=== PATIENT | male | born 1955 | race Caucasian/White ===

== ENCOUNTER 2017-04-02 16:25 | Inpatient (IN) | payer MEDICARE, BC ==
[2017-04-02] MEDS ORDERED: DILTIAZEM HCL 5 MG/ML VIAL IV ONE ×3 (16:33→16:35)
[2017-04-02 16:51] LABS: Hematocrit 42.3 % (42.0-52.0); Hemoglobin 14.7 gm/dL (13.5-18.0); Mean Cell Volume 83.4 fl (78-100); Mean Corpuscular Hgb Conc 34.8 g/dl (32-36); Mean Platelet Volume 10.5 fl (6.0-9.5); Neutrophil # 7.1 K/mm3 (1.3-6.0); Neutrophil % 67.2 % (42-75.0); Platelet Count 245 K/mm3 (150-450); Red Blood Count 5.07 M/mm3 (4.7-6.0); Red Cell Distribution Width 13.3 % (11.5-14.0); White Blood Count 10.6 K/mm3 (4.0-10.5)
[2017-04-02] MEDS: DILTIAZEM HCL 125 MG in DEXTROSE 5 % IN WATER 100 ML IV PRN ×4 (17:01→17:28)
[2017-04-02 17:02] LABS: Prothrombin Time (Patient) 9.9 Seconds (9.0-11.0)
[2017-04-02 17:08] LABS: INR 0.99 INR (0.90-1.10)
[2017-04-02 17:13] LABS: ALT 33 U/L (19-67); AST 21 U/L (0-48); Alkaline Phosphatase * 59 U/L (50-170); Anion Gap 18.3 mmol/L (6.8-13.8); BUN/Creatinine Ratio 19.1 (9.0-21.6); Bilirubin, Total 0.4 mg/dL (0.0-1.1); Blood Urea Nitrogen 25 mg/dL (6-23); Calcium * 9.3 mg/dL (7.9-10.9); Chloride 95 mmol/L (97-106); Glucose * 239 mg/dL (70-110); Potassium 3.3 mmol/L (3.4-4.6); Sodium 137 mmol/L (132-142); Total Protein 8.3 gm/dL (6.2-8.2); Troponin I Less than 0.017 ng/ml (0.00-0.10)
[2017-04-02] MEDS ORDERED: HEPARIN SODIUM,PORCINE/D5W 25,000 UNITS/500 ML BAG IV PRN (17:26)
[2017-04-02] MEDS ORDERED: HEPARIN SODIUM,PORCINE/D5W 25,000 UNITS/500 ML BAG IV ONE (17:56)
--- NOTE | 2017-04-02 18:36 | ERNOTE ---
Chest Pain/Cardiac HPI Date of Service: 04/02/17 Chief Complaint: Palpitations Time Seen by Provider: 04/02/17 16:31 Source: patient Exam Limitations: no limitations Immunizations: IMMUNIZATION HX Immunizations Up to Date Yes History of Influenza Vaccine No Hx Pneumococcal Vaccination No Allergies/Adverse Reactions: Allergies metaxalone [From Skelaxin] Allergy (Severe, Verified 04/02/17 16:36) Other violently sick rosiglitazone maleate [From Avandia] Allergy (Severe, Verified 04/02/17 16:36) Other tachy rosuvastatin calcium [From Crestor] Allergy (Severe, Verified 04/02/17 16:36) Muscle Pain clarithromycin [From Biaxin] Allergy (Intermediate, Verified 04/02/17 16:36) Nausea duloxetine HCl [From Cymbalta] Allergy (Intermediate, Verified 04/02/17 16:36) Other sweats and feel funny pregabalin [From Lyrica] Allergy (Intermediate, Verified 04/02/17 16:36) Other dizzy Home Medications: HOME MEDICATIONS Amlodipine Besylate [Norvasc] 2.5 mg PO DAILY 10/19/14 [Last Taken Unknown] Furosemide [Lasix] 20 mg PO DAILY 10/19/14 [Last Taken Unknown] Isosorbide Mononitrate [Imdur] 60 mg PO DAILY 10/19/14 [Last Taken Unknown] Losartan/Hydrochlorothiazide [Hyzaar 100-25 Tablet] 1 each PO DAILY 10/19/14 [ Last Taken Unknown] Metoprolol Succinate [Toprol Xl] 200 mg PO DAILY 10/19/14 [Last Taken Unknown] Omeprazole [Prilosec] 20 mg PO DAILY 10/19/14 [Last Taken Unknown] Simvastatin [Zocor] 60 mg PO HS 10/19/14 [Last Taken Unknown] metFORMIN HCL [Glucophage] 1,000 mg PO BID 10/19/14 [Last Taken Unknown] traMADol HCL [Ultram] 100 mg PO BID 10/19/14 [Last Taken Unknown] Acetaminophen [Tylenol] 650 mg PO QID PRN #1 tab 10/20/14 [Last Taken Unknown] Insulin Detemir [Levemir] 80 units SC BID 10/20/14 [Last Taken 10/20/14 01:00] Nitroglycerin [Nitrostat] 0.4 mg SL Q5MIN PRN #1 btl 10/20/14 [Last Taken Unknown] Pioglitazone HCl [Actos] 45 mg PO DAILY 04/10/16 [Last Taken Unknown] Aspirin [Aspirin Chewable] 81 mg PO WE 04/02/17 [Last Taken Unknown] Cyclobenzaprine HCl [Flexeril] 10 mg PO QID PRN 04/02/17 [Last Taken Unknown] Potassium Chloride [Klor-Con M20] 20 meq PO DAILY 04/02/17 [Last Taken Unknown] Potassium Chloride [Klor-Con M20] 40 meq PO HS 04/02/17 [Last Taken Unknown] glipiZIDE [Glipizide] 10 mg PO BID 04/02/17 [Last Taken Unknown] oxyCODONE HCL/ACETAMINOPHEN [Endocet 10-325 mg Tablet] 1 each PO PRN PRN [Last Taken Unknown] Narrative: Patient presents to the ED for heart racing. He has been having heart racing for the last day. He can feel the palpitations, no CP or SOB. He has recently returned from [place] but no new calf pain or leg swelling and no pleuritic pain or SOB. He states his heart has raced before but he cannot recall ever being diagnosed with a fib. He is not on blood thinners. He has not seen anyone else for this. He reltes a long Hx of back spasms but these are no different from normal for him. Nothing seems to make this better or worse. Timing: constant Severity/Quality: other - denies pain Chest Pain Radiation: no radiation Activities at Onset: none Modifying Factors - Improves: Present: nothing Modifying Factors - Worsens: Present: nothing Associated Symptoms: Present: palpitations. Absent: dizziness, syncope, cough, shortness of breath, fever/chills, abdominal pain Prior Treatment: Denies: recently seen Review of Systems - Review of Systems Constitutional: Absent: fever Respiratory: Absent: shortness of breath Cardiology: Absent: chest pain Gastrointestinal/Abdominal: Absent: abdominal pain Neurological: Absent: weakness All Other Systems: All systems neg except as marked - Patient's Past Medical History Patient History - Medical: Diabetes Type 2 Insulin Dependent, GERD, Osteoarthritis Patient History - Cardiac/Respiratory: Hypertension, Hyperlipidemia, Myocardial Infarction Patient History - Cancer: No Hx of Cancer Patient History - Surgical Procedures: Coronary Bypass Surgery, Other Patient History - Other: None - Family History Mother Family History - Medical: Arthritis, Other Family History - Cardiac/Respiratory: Hypertension, Hyperlipidemia Father Family History - Medical: Arthritis, Diabetes Type 2, Other Family History - Cardiac/Respiratory: Hypertension, Hyperlipidemia, Myocardial Infarction Grandfather-Paternal Family History - Medical: Arthritis Family History - Cardiac/Respiratory: No pertinent hx Grandmother-Maternal Family History - Medical: Arthritis Grandmother-Paternal Family History - Medical: Arthritis Sister Family History - Cardiac/Respiratory: Hypertension - Social History Living Situations: home Abuse History: No History of abuse Psych History: No pertinent hx Alcohol Use: none Drug Use: none - Immunizations Immunizations Up to Date: Yes Hx Pneumococcal Vaccination: No History of Influenza Vaccine: No Physical Exam - Physical Exam General Appearance: Present: alert, no apparent distress Head Exam: Present: normal inspection, no evidence of injury Eye Exam: Normal inspection: bilateral, PERRL: bilateral Ears, Nose, Throat: Present: normal ENT inspection Neck: Present: normal inspection, nontender Respiratory: Present: no respiratory distress, normal breath sounds, no accessory muscle use, lungs clear Cardiovascular/Chest: Present: normal peripheral pulses, tachycardia Gastrointestinal/Abdominal: Present: normal bowel sounds, nontender, soft Back Exam: Absent: CVA tenderness (R), CVA tenderness (L) Extremity Exam: Present: other - no calf tenderness or DVT findings Neurological Exam: Present: alert, normal mood/affect, no motor/sensory deficits Skin Exam: Present: normal color, warm/dry ED Progress - Results and Orders Patient's Lab Results:: I have reviewed the patient's lab results. - Vital Signs Vital Signs: Vital Signs 04/02/17 04/02/17 04/02/17 16:31 16:38 16:49 Temperature 36.0 C L Pulse Rate 150 H 150 H 132 H Respiratory 24 H 19 Rate Blood Pressure 158/86 158/86 148/69 O2 Sat by Pulse 98 95 Oximetry 04/02/17 04/02/17 04/02/17 17:01 17:03 17:26 Temperature Pulse Rate 129 H 129 H 127 H Respiratory 20 14 Rate Blood Pressure 133/73 133/73 120/65 O2 Sat by Pulse 96 95 Oximetry - EKG EKG read: Interp. by id EKG Comments: A fib pattern with RVR. Non-specific ST/T wave changes, no clear evidence of STEMI. - X-Ray X-Ray #1 X-Ray: chest Interpretation: Interp. by me X-ray Comments: I reviewed official radiology report - Progress/Reassessment Chief Complaint: Palpitations Progress Note-Subjective: 04/02/17 18:35 IV cassia brought the patient from the 150s to the 130s. Cassia parr brought him to the 120's. D/W Dr Christopher who was content strategy lead, she recommends Heparin and the patient will be admitted. Patient agreeable. Departure Clinical Impression: Palpitations, Atrial fibrillation with RVR - Departure Disposition: [facility] Condition: Stable
[2017-04-02] MEDS ORDERED: POTASSIUM CHLORIDE 20 MEQ TABLET.SA PO ONE (21:39)
[2017-04-02] MEDS ORDERED: ACETAMINOPHEN 325 MG TABLET PO PRN (21:47)
--- NOTE | 2017-04-02 21:55 | HP ---
Chief Complaint - Chief Complaint Date of Service: 04/02/17 Time of Service: 21:25 Chief Complaint: Palpitation, chest pain History of Present Illness: 62 years old WM adm to the unit with reports of chest pain and palpitation. PMH significant for hypertension, hyperlipidemia, ME, CABG and diabetes. Pt stated he was at home and having chest discomfort that felt like back spasm. He denies shortness of breath,nausea, vomiting, headache and report lightheadedness and a cough x 6months that began while in [place]. He usually have the back discomfort and with increased heart rate that dissipated, however today his HR continue to increased despite he was resting. He was concerned because his Dad had ME and ,he had taken vitals at home BP 130/72 and HR 135. He called a friend who took him to the ER. In ER EKG showed Afib with RVR cardizem 20mg x1 and continue with drip,He was placed on heparin drip. Bun/ cre 25/1.31, BG 239, trop 0.017. Plan of care discussed with pt he verbalized understanding and agrees. - Patient's Past Medical History Patient History - Medical: Diabetes Type 2 Insulin Dependent, GERD, Osteoarthritis Patient History - Cardiac/Respiratory: Hypertension, Hyperlipidemia, Myocardial Infarction Patient History - Cancer: No Hx of Cancer Patient History - Surgical Procedures: Coronary Bypass Surgery, Other - elbow fragment removed Patient History - Other: None - Family History Mother Family History - Medical: Arthritis, Other - pacemaker Family History - Cardiac/Respiratory: Atrial Fibrillation, Hypertension, Hyperlipidemia Family History - Cancer: No pertinent family hx, Breast Father Family History - Medical: Arthritis, Diabetes Type 2, Other Family History - Cardiac/Respiratory: Hypertension, Hyperlipidemia, Myocardial Infarction Family History - Cancer: No pertinent family hx Grandfather-Paternal Family History - Medical: , Arthritis Family History - Cardiac/Respiratory: No pertinent hx Family History - Cancer: No pertinent family hx Grandmother-Maternal Family History - Medical: , Arthritis Family History - Cardiac/Respiratory: No pertinent hx Family History - Cancer: No pertinent family hx Grandmother-Paternal Family History - Medical: , Arthritis Family History - Cardiac/Respiratory: No pertinent hx Family History - Cancer: No pertinent family hx Sister Family History - Medical: No pertinent hx Family History - Cardiac/Respiratory: Hypertension Family History - Cancer: No pertinent family hx - Social History Living Situations: alone Abuse History: No History of abuse Psych History: No pertinent hx Smoking Status: Former smoker Have you smoked in the past 12 months: No Do you dip or chew tobacco: No Patient requests Smoking Cessation Consult: No Initiate information on Smoking Cessation: No Alcohol Use: none Drug Use: none - Immunizations Immunizations Up to Date: Yes Hx Pneumococcal Vaccination: No History of Influenza Vaccine: No Review Of Systems (GEN) - Review of Systems Generalized/Overall Review: Present: No Symptoms Reported EENTM: Present: No Symptoms Reported Respiratory: Present: Cough - x 6 months was livng in [facility] with alot of dust, nasal drainage due to sinusitis Cardiac: Present: Palpitations Abdominal: Present: No Symptoms Reported Genitourinary: Present: No Symptoms Reported Musculoskeletal: Present: Back Pain Neurological: Present: Parasthesia Skin: Present: No Symptoms Reported Endocrine: Present: No Symptoms Reported Immunizations: IMMUNIZATION HX Immunizations Up to Date Yes History of Influenza Vaccine No Hx Pneumococcal Vaccination No Allergies/Adverse Reactions: Allergies Allergy/AdvReac Type Severity Reaction Status Date / Time metaxalone [From Skelaxin] Allergy Severe Other Verified 04/02/17 20:05 rosiglitazone maleate Allergy Severe Other Verified 04/02/17 20:05 [From Avandia] rosuvastatin calcium Allergy Severe Muscle Pain Verified 04/02/17 20:05 [From Crestor] clarithromycin [From Biaxin] Allergy Intermediate Nausea Verified 04/02/17 20:05 duloxetine HCl Allergy Intermediate Other Verified 04/02/17 20:05 [From Cymbalta] pregabalin [From Lyrica] Allergy Intermediate Other Verified 04/02/17 20:05 Home Medications: HOME MEDICATIONS Amlodipine Besylate [Norvasc] 2.5 mg PO DAILY 10/19/14 [Last Taken Unknown] Furosemide [Lasix] 20 mg PO DAILY 10/19/14 [Last Taken Unknown] Isosorbide Mononitrate [Imdur] 60 mg PO DAILY 10/19/14 [Last Taken Unknown] Losartan/Hydrochlorothiazide [Hyzaar 100-25 Tablet] 1 each PO DAILY 10/19/14 [ Last Taken Unknown] Metoprolol Succinate [Toprol Xl] 200 mg PO DAILY 10/19/14 [Last Taken Unknown] Omeprazole [Prilosec] 20 mg PO BID 10/19/14 [Last Taken Unknown] Simvastatin [Zocor] 60 mg PO HS 10/19/14 [Last Taken Unknown] metFORMIN HCL [Glucophage] 1,000 mg PO BID 10/19/14 [Last Taken Unknown] Acetaminophen [Tylenol] 650 mg PO QID PRN #1 tab 10/20/14 [Last Taken Unknown] Insulin Detemir [Levemir] 80 units SC BID 10/20/14 [Last Taken 10/20/14 01:00] Nitroglycerin [Nitrostat] 0.4 mg SL Q5MIN PRN #1 btl 10/20/14 [Last Taken Unknown] Pioglitazone HCl [Actos] 45 mg PO DAILY 04/10/16 [Last Taken Unknown] Aspirin [Aspirin Chewable] 81 mg PO WE 04/02/17 [Last Taken Unknown] Cyclobenzaprine HCl [Flexeril] 10 mg PO QID PRN 04/02/17 [Last Taken Unknown] Potassium Chloride [Klor-Con M20] 20 meq PO DAILY 04/02/17 [Last Taken Unknown] Potassium Chloride [Klor-Con M20] 40 meq PO HS 04/02/17 [Last Taken Unknown] glipiZIDE [Glipizide] 10 mg PO BID 04/02/17 [Last Taken Unknown] oxyCODONE HCL/ACETAMINOPHEN [Endocet 10-325 mg Tablet] 1 each PO PRN PRN [Last Taken Unknown] Exam - Exam Vital Signs: Vital Signs - Last Taken Temp 36.7 C 04/02/17 20:37 Pulse 128 H 04/02/17 20:37 Resp 21 H 04/02/17 20:37 BP 147/85 04/02/17 20:37 Pulse Ox 100 04/02/17 20:37 Constitutional: Present: Alert, Oriented x3, Cooperative, No distress ENT Exam: Present: hearing grossly normal Eye Exam: bilateral eye: normal inspection Neck: Present: full range of motion Back Exam: Present: normal inspection Breasts: Present: Exam deferred Respiratory: Present: chest non-tender, lungs clear, normal breath sounds, no respiratory distress Cardiovascular/Chest: Present: no chest tenderness, no edema, no gallop, no JVD , no murmur, tachycardia, irregularly irregular Peripheral Pulses: dorsalis-pedis (R): 2+, dorsalis-pedis (L): 2+ Abdomen: Present: Normal bowel sounds, soft, nontender, nondistended, no rebound tenderness /Rectal: Present: Exam deferred Extremity: Present: normal range of motion, non-tender, normal inspection, no pedal edema, no calf tenderness Skin Exam: Present: normal color, warm/dry Lymphatic: Present: no adenopathy Neurologic: Present: oriented x 3 Appearance: Present: appropriate appearance Eye contact: Present: cooperative Thoughts: Present: normal thought pattern Diagnostic Studies: Laboratory Results WBC 10.6 K/mm3 (4.0-10.5) H 04/02/17 16:48 RBC 5.07 M/mm3 (4.7-6.0) 04/02/17 16:48 Hgb 14.7 gm/dL (13.5-18.0) 04/02/17 16:48 Hct 42.3 % (42.0-52.0) 04/02/17 16:48 MCV 83.4 fl (78-100) 04/02/17 16:48 MCH 29.0 pg (27-31) 04/02/17 16:48 MCHC 34.8 g/dl (32-36) 04/02/17 16:48 RDW 13.3 % (11.5-14.0) 04/02/17 16:48 Plt Count 245 K/mm3 (150-450) 04/02/17 16:48 MPV 10.5 fl (6.0-9.5) H 04/02/17 16:48 Immature Gran % (Auto) 0.30 % (0.001-0.429) 04/02/17 16:48 Immature Gran # (Auto) 0.03 K/mm3 (0.000-0.0310) 04/02/17 16:48 Neutrophils % 67.2 % (42-75.0) 04/02/17 16:48 Lymphocytes % 20.5 % (20-51) 04/02/17 16:48 Monocytes % 10.3 % (0.0-9) H 04/02/17 16:48 Eosinophils % 1.3 % (0.0-3.0) 04/02/17 16:48 Basophils % 0.4 % (0.0-1.0) 04/02/17 16:48 Nucleated RBC % 0.0 k/mm3 (0-1) 04/02/17 16:48 Neutrophils # 7.1 K/mm3 (1.3-6.0) H 04/02/17 16:48 Lymphocytes # 2.2 k/mm3 (1.5-3.5) 04/02/17 16:48 Monocytes # 1.1 k/mm3 (0.0-1.0) H 04/02/17 16:48 Eosinophils # 0.1 k/mm3 (0.0-0.7) 04/02/17 16:48 Absolute Basophils 0.0 k/mm3 (0.0-0.1) 04/02/17 16:48 PT 9.9 Seconds (9.0-11.0) 04/02/17 16:48 INR (Anticoag Therapy) 0.99 INR (0.90-1.10) 04/02/17 16:48 PTT (Darya) 24.7 Seconds (24-32) 04/02/17 16:48 Sodium 137 mmol/L (132-142) 04/02/17 16:48 Plasma Sodium 139 mmol/L (130-142) 04/02/17 16:48 Potassium 3.3 mmol/L (3.4-4.6) L 04/02/17 16:48 Chloride 95 mmol/L (97-106) L 04/02/17 16:48 Carbon Dioxide 27.0 mmol/L (24-32.6) 04/02/17 16:48 Anion Gap 18.3 mmol/L (6.8-13.8) H 04/02/17 16:48 BUN 25 mg/dL (6-23) H 04/02/17 16:48 Creatinine 1.31 mg/dL (0.4-1.4) D 04/02/17 16:48 Est GFR (Non-Af Amer) 59 mL/min (60-130) L D 04/02/17 16:48 BUN/Creatinine Ratio 19.1 (9.0-21.6) 04/02/17 16:48 Random Glucose 239 mg/dL (70-110) H 04/02/17 16:48 Calcium 9.3 mg/dL (7.9-10.9) 04/02/17 16:48 Calcium Adj for Albumin 9.0 mg/dL (8.4-10.2) 04/02/17 16:48 Total Bilirubin 0.4 mg/dL (0.0-1.1) 04/02/17 16:48 AST 21 U/L (0-48) 04/02/17 16:48 ALT 33 U/L (19-67) 04/02/17 16:48 Alkaline Phosphatase 59 U/L (50-170) 04/02/17 16:48 Troponin I Less than 0.017 ng/ml (0.00-0.10) 04/02/17 16:48 Total Protein 8.3 gm/dL (6.2-8.2) H 04/02/17 16:48 Albumin 4.0 gm/dl (3.4-5.0) 04/02/17 16:48 TSH 1.678 uIU/mL (0.358-3.74) 04/02/17 17:00 CXR: No acute cardiopulmonary process Assessment/Plan - Narrative Narrative: Afib RVR- 1st episode seen on EKG while in the ER, pt report of HR 135 while at home Cardizem 20mg x1, continue with drip and placed on unit [id number] vasc score 4 and continue Heparin drip and monitor PTT. Pt state he will decide tomorrow if he want to go on Coumadin vs eliquis Telemetry monitoring 2-D echo pending Troponin negative CXR: No acute cardiopulmonary process TSH stable Diabetes Accu-check AC+HS and resume home medications On adm BG- 239 Consistent carb diet CAD- stable S/P CABG 2003 Chronic pain May resume Percocet and Flexeril Code status: Full GI ppx:Prilosec VTE ppx: On therapeutic heparin drip Time 50 minutes and case discussed with Dr. Christopher - Assessment/Plan (1) Atrial fibrillation with RVR Problem: Acute (2) Diabetes Problem: Chronic (3) Chronic pain Problem: Chronic (4) Coronary artery disease Problem: Chronic Qualifiers: Coronary Disease-Associated Artery/Lesion type: bypass graft
[2017-04-02] MEDS: CYCLOBENZAPRINE HCL 10 MG TABLET PO PRN (22:00)
[2017-04-02] MEDS ORDERED: oxyCODONE HCL 5 MG TABLET PO PRN (22:04)
[2017-04-02] MEDS ORDERED: oxyCODONE HCL/ACETAMINOPHEN 1 TAB TABLET PO PRN (22:05)
[2017-04-02] MEDS: PANTOPRAZOLE SODIUM 20 MG TABLET.DR PO SCH (22:10)
[2017-04-03] MEDS ORDERED: NORMAL SALINE 250 ML IV ONE (04:26)
[2017-04-03 06:10] LABS: BUN/Creatinine Ratio 18.9 (9.0-21.6); Calcium * 8.9 mg/dL (7.9-10.9); Carbon Dioxide 30.7 mmol/L (24-32.6); Estimated Creat Clear 74.8; Potassium 2.7 mmol/L (3.4-4.6)
[2017-04-03] MEDS: CYCLOBENZAPRINE HCL 10 MG TABLET PO PRN ×2 (08:06→20:34)
[2017-04-03] MEDS: PANTOPRAZOLE SODIUM 20 MG TABLET.DR PO SCH ×2 (08:07→20:33)
[2017-04-03] MEDS: amLODIPine BESYLATE 5 MG TABLET PO SCH (08:10)
[2017-04-03] MEDS ORDERED: glipiZIDE 10 MG TABLET PO SCH (09:00)
[2017-04-03] MEDS ORDERED: POTASSIUM CHLORIDE 20 MEQ TABLET.SA PO SCH ×2 (09:00→21:00)
[2017-04-03] MEDS: INSULIN DETEMIR 100 UNITS/ML VIAL SC SCH ×2 (09:28→20:37)
[2017-04-03] MEDS ORDERED: POTASSIUM CHLORIDE 20 MEQ TABLET.SA PO ONE (10:27)
[2017-04-03] MEDS ORDERED: ENOXAPARIN SODIUM 100 MG/ML SYRG SC SCH (10:45)
[2017-04-03] MEDS: METOPROLOL SUCCINATE 25 MG TABLET.SA PO SCH (11:02)
[2017-04-03] MEDS: ENOXAPARIN SODIUM 80 MG, ENOXAPARIN SODIUM 30 MG SC SCH ×4 (11:03→22:24)
[2017-04-03] MEDS: WARFARIN SODIUM 5 MG TABLET PO SCH (11:07)
[2017-04-03] MEDS: INSULIN LISPRO 100 UNITS/ML VIAL SC SCH ×2 (11:59→17:34)
[2017-04-03] MEDS ORDERED: oxyCODONE HCL 5 MG TABLET PO PRN (14:36)
[2017-04-03] MEDS: SIMVASTATIN 20 MG TABLET PO SCH (20:33)
[2017-04-03] MEDS: POTASSIUM CHLORIDE 20 MEQ TABLET.SA PO SCH (20:33)
[2017-04-03] MEDS: oxyCODONE HCL/ACETAMINOPHEN 1 TAB TABLET PO PRN (20:34)
[2017-04-03] MEDS ORDERED: SIMVASTATIN 40 MG TABLET PO SCH (21:00)
[2017-04-04 06:14] LABS: Prothrombin Time (Patient) 10.6 Seconds (9.0-11.0)
[2017-04-04 06:22] LABS: INR 1.06 INR (0.90-1.10)
--- NOTE | 2017-04-04 06:31 | PN ---
Subjective - Date and Time Seen Date: 04/04/17 Time: 06:30 Subjective Narrative: Patient seen today in bed AOX3 no acute distress, he denies palpitation, shortness of breath, cough or chest pain. pt anticipated getting echo done on Wednesday and INR therapeutic while on Coumadin to be discharge. Plan of care discussed with pt he verbalized understanding and agree Objective - Review of Systems Generalized/Overall Review: Reports: No Symptoms Reported EENTM: Reports: No Symptoms Reported Respiratory: Reports: No Symptoms Reported Cardiac: Reports: No Symptoms Reported Abdominal: Reports: No Symptoms Reported Genitourinary Symptoms: Reports: No Symptoms Reported Musculoskeletal Complaints: Reports: No Symptoms Reported Neurological: Reports: No Symptoms Reported Skin: Reports: No Symptoms Reported Endocrine: Reports: No Symptoms Reported - Vitals Vitals: Last Vital Signs Temp 36.7 C 04/04/17 03:00 Pulse 84 04/04/17 03:00 Resp 18 04/04/17 03:00 BP 113/65 04/04/17 03:00 Pulse Ox 92 04/04/17 03:00 - Exam Constitutional: Present: Alert, Oriented x3, Cooperative, No distress ENT Exam: Present: hearing grossly normal Neck: Present: full range of motion Breasts: Present: Exam deferred Respiratory: Present: chest non-tender, lungs clear, normal breath sounds, no respiratory distress Cardiovascular/Chest: Present: normal peripheral pulses, regular rate, rhythm, no chest tenderness, no edema Abdomen: Present: Normal bowel sounds, soft, distended /Rectal: Present: Exam deferred Extremity: Present: normal range of motion, non-tender, normal inspection, no pedal edema, no calf tenderness Skin Exam: Present: normal color, warm/dry, no cyanosis Neurologic: Present: oriented x 3 Appearance: Present: appropriate appearance Eye contact: Present: cooperative, good eye contact Thoughts: Present: normal thought pattern Assessment/Plan Plan Narrative: Afib RVR- 1st episode- resolved seen on EKG while in the ER, pt report of HR 135 while at home 04/03/17 pt converted while on Cardizem drip and transfer out the unit [id number] vasc score 4 switched from heparin drip to lovenox Currently bridging with Coumadin INR 1.06---> Will DC when therapeutic and echo complete Continue with Telemetry monitoring 2-D echo pending Troponin negative CXR: No acute cardiopulmonary process TSH stable Diabetes Accu-check AC+HS Continue home medications Consistent carb diet CAD- stable S/P CABG 2003 Chronic pain May resume Percocet and Flexeril Code status: Full GI ppx:Prilosec VTE ppx: On therapeutic heparin drip Time 20 minutes and case discussed with Dr. Christopher - Problems/Diagnosis (1) Atrial fibrillation with RVR Problem: Acute (2) Diabetes Problem: Chronic (3) Chronic pain Problem: Chronic (4) Coronary artery disease Problem: Chronic Qualifiers: Coronary Disease-Associated Artery/Lesion type: bypass graft
[2017-04-04] MEDS: INSULIN LISPRO 100 UNITS/ML VIAL SC SCH ×3 (07:33→17:28)
[2017-04-04] MEDS: PANTOPRAZOLE SODIUM 20 MG TABLET.DR PO SCH ×2 (08:26→21:17)
[2017-04-04] MEDS: POTASSIUM CHLORIDE 20 MEQ TABLET.SA PO SCH ×2 (08:26→21:16)
[2017-04-04] MEDS: METOPROLOL SUCCINATE 25 MG TABLET.SA PO SCH (08:26)
[2017-04-04] MEDS: amLODIPine BESYLATE 5 MG TABLET PO SCH (08:27)
[2017-04-04] MEDS: INSULIN DETEMIR 100 UNITS/ML VIAL SC SCH ×2 (08:29→21:13)
[2017-04-04] MEDS: ENOXAPARIN SODIUM 80 MG, ENOXAPARIN SODIUM 30 MG SC SCH ×4 (10:31→22:49)
[2017-04-04] MEDS: WARFARIN SODIUM 5 MG TABLET PO SCH (19:48)
[2017-04-04] MEDS: SIMVASTATIN 20 MG TABLET PO SCH (21:16)
[2017-04-04] MEDS: CYCLOBENZAPRINE HCL 10 MG TABLET PO PRN (22:07)
[2017-04-04] MEDS: oxyCODONE HCL/ACETAMINOPHEN 1 TAB TABLET PO PRN (22:07)
[2017-04-05 06:31] LABS: Anion Gap 12.4 mmol/L (6.8-13.8); BUN/Creatinine Ratio 19.8 (9.0-21.6); Carbon Dioxide 31.8 mmol/L (24-32.6); Estimated Creat Clear 68.6; Potassium 3.2 mmol/L (3.4-4.6)
[2017-04-05 06:36] LABS: INR 1.05 INR (0.90-1.10); Prothrombin Time (Patient) 10.5 Seconds (9.0-11.0)
[2017-04-05 06:38] LABS: BUN/Creatinine Ratio 18.3 (9.0-21.6); Carbon Dioxide 29.8 mmol/L (24-32.6); Estimated Creat Clear 72.2; Potassium 3.8 mmol/L (3.4-4.6)
[2017-04-05] MEDS: INSULIN LISPRO 100 UNITS/ML VIAL SC SCH ×3 (07:28→17:08)
[2017-04-05] MEDS: INSULIN DETEMIR 100 UNITS/ML VIAL SC SCH ×2 (10:26→20:50)
[2017-04-05] MEDS: POTASSIUM CHLORIDE 20 MEQ TABLET.SA PO SCH ×2 (10:26→20:47)
[2017-04-05] MEDS: PANTOPRAZOLE SODIUM 20 MG TABLET.DR PO SCH ×2 (10:27→20:48)
[2017-04-05] MEDS: amLODIPine BESYLATE 5 MG TABLET PO SCH (10:27)
[2017-04-05] MEDS: METOPROLOL SUCCINATE 25 MG TABLET.SA PO SCH (10:27)
[2017-04-05] MEDS: ENOXAPARIN SODIUM 80 MG, ENOXAPARIN SODIUM 30 MG SC SCH ×4 (10:28→22:53)
[2017-04-05] MEDS ORDERED: WARFARIN SODIUM 7.5 MG TABLET PO SCH (17:00)
[2017-04-05] MEDS ORDERED: NITROGLYCERIN 0.4 MG/TAB BTL SL PRN (19:19)
[2017-04-05] MEDS ORDERED: MAGNESIUM HYDROXIDE 30 ML UDC PO STA (19:37)
--- NOTE | 2017-04-05 19:45 | PN ---
Subjective - Date and Time Seen Date: 04/05/17 Time: 19:39 Subjective Narrative: Feels ok. No chest pain. No palpitations. Mother had atrial fibrillation. Would like a stool softener. Objective - Review of Systems Generalized/Overall Review: Reports: No Symptoms Reported EENTM: Reports: No Symptoms Reported Respiratory: Reports: No Symptoms Reported Cardiac: Reports: No Symptoms Reported Abdominal: Reports: Constipation Genitourinary Symptoms: Reports: No Symptoms Reported Musculoskeletal Complaints: Reports: No Symptoms Reported Neurological: Reports: No Symptoms Reported Skin: Reports: No Symptoms Reported Endocrine: Reports: No Symptoms Reported Misc: All systems neg except as marked - Vitals Vitals: Last Vital Signs Selected Entries 04/05/17 04/05/17 04/05/17 10:27 14:23 16:00 Temperature Temperature Source Pulse Rate 97 94 108 H Respiratory Rate Respiratory Depth Blood Pressure 142/78 143/75 Blood Pressure Position O2 Sat by Pulse Oximetry Oxygen Delivery Method 04/05/17 18:00 Temperature 36.5 C Temperature Temporal Artery Source Scan Pulse Rate 96 Respiratory 18 Rate Respiratory Normal Depth Blood Pressure 136/34 Blood Pressure Sitting Position O2 Sat by Pulse 98 Oximetry Oxygen Delivery Room Air Method - Abnormal Lab Findings Abnormal Lab Findings: Abnormal Lab Results 04/04/17 Range/Units 05:40 Potassium 3.2 L (3.4-4.6) mmol/L BUN 24 H (6-23) mg/dL Echo report shows minimal decrease in EF and minimal diastolic dysfunction. - Exam Constitutional: Present: Alert, Oriented x3, Cooperative, Well developed, No distress, Obese ENT Exam: Present: normal ENT inspection, hearing grossly normal Neck: Present: normal inspection Respiratory: Present: normal breath sounds, no respiratory distress Cardiovascular/Chest: Present: no murmur, irregularly irregular Abdomen: Present: Normal bowel sounds, soft, nontender, nondistended, no rebound tenderness, no hepatospenomegaly, no masses, obese Extremity: Present: normal inspection, no pedal edema Skin Exam: Present: normal color, warm/dry Neurologic: Present: alert, oriented x 3 Appearance: Present: appropriate appearance, appropriate insight, neat Eye contact: Present: cooperative, good eye contact, normal speech Thoughts: Present: normal thought pattern Assessment/Plan Plan Narrative: MOM. Wait for INR to become therapeutic. Slight increase in beta ana. Refer cardiology as outpatient. - Problems/Diagnosis (1) Atrial fibrillation with RVR Problem: Acute (2) Diabetes Problem: Chronic (3) Coronary artery disease Problem: Chronic Qualifiers: Coronary Disease-Associated Artery/Lesion type: bypass graft [place] vs. transplanted heart: [place] heart Associated angina: without angina Qualified Code(s): I25.810 - Atherosclerosis of coronary artery bypass graft(s) without angina pectoris (4) Constipation Problem: Acute Qualifiers: Constipation type: slow transit constipation Qualified Code(s): K59.01 - Slow transit constipation
[2017-04-05] MEDS: SIMVASTATIN 20 MG TABLET PO SCH (20:48)
[2017-04-06 06:03] LABS: Prothrombin Time (Patient) 11.1 Seconds (9.0-11.0)
[2017-04-06 06:05] LABS: INR 1.11 INR (0.90-1.10)
[2017-04-06 06:37] VITALS: BP 152/94
[2017-04-06] MEDS: INSULIN LISPRO 100 UNITS/ML VIAL SC SCH (06:43)
--- NOTE | 2017-04-06 07:28 | DS ---
(1) Atrial fibrillation with RVR Problem: Acute (2) Diabetes Problem: Chronic (3) Coronary artery disease Problem: Chronic Qualifiers: Coronary Disease-Associated Artery/Lesion type: bypass graft [place] vs. transplanted heart: [place] heart Associated angina: without angina Qualified Code(s): I25.810 - Atherosclerosis of coronary artery bypass graft(s) without angina pectoris (4) Constipation Problem: Acute Qualifiers: Constipation type: slow transit constipation Qualified Code(s): K59.01 - Slow transit constipation (5) Hypertension Problem: Acute Qualifiers: Hypertension type: essential hypertension Qualified Code(s): I10 - Essential (primary) hypertension (6) Systolic and diastolic CHF, acute Diagnosis(s): Very mild Problem: Chronic Description of Stay: Rate controlled. Started on anticoagulation with lovenox. Still not therapeutic with coumadin, will continue at home. BP still slightly high. Procedures Performed: none Discharge Disposition: Home self care Disposition: Home self-care Condition: Stable Discharge Activity: Activity as tolerated Discharge Diet: Consistent carbs Referrals: Rigo Barajas MD [Primary Care Provider] - Problem Oriented Discharge Instructions to Patient/Family: Atrial Fibrillation , [id number] Additional Patient Instructions (free text): Followup with Dr. Menendez in 1 week. CBC and BMP in 1 week. Daily ProTime Keep followup appt with Dr. Phillips. Goal INR is 2-3 Stop Lovenox injections when INR is 2-3 Prescriptions (Any new or edited meds): Enoxaparin Sodium [Lovenox] 110 mg SC Q12H #20 disp.syrin Insulin Lispro [Humalog] See Protocol SC ACINS 30 Days #30 vial Losartan Potassium [Cozaar] 25 mg PO DAILY #30 tab Metoprolol Succinate [Toprol Xl] 50 mg PO DAILY #30 tablet.sa Warfarin Sodium [Coumadin] 10 mg PO DAILY #30 tablet Complete Home Medications List: Complete Home Medication List: Amlodipine Besylate [Norvasc] 2.5 mg PO DAILY 10/19/14 Omeprazole [Prilosec] 20 mg PO BID 10/19/14 Simvastatin [Zocor] 60 mg PO HS 10/19/14 Acetaminophen [Tylenol] 650 mg PO QID PRN #1 tab 10/20/14 Insulin Detemir [Levemir] 80 units SC BID 10/20/14 Nitroglycerin [Nitrostat] 0.4 mg SL Q5MIN PRN #1 btl 10/20/14 Cyclobenzaprine HCl [Flexeril] 10 mg PO QID PRN 04/02/17 Potassium Chloride [Klor-Con M20] 40 meq PO HS 04/02/17 oxyCODONE HCL/ACETAMINOPHEN [Endocet 10-325 mg Tablet] 1 each PO PRN PRN Enoxaparin Sodium [Lovenox] 110 mg SC Q12H #20 disp.syrin 04/06/17 Insulin Lispro [Humalog] See Protocol SC ACINS 30 Days #30 vial 04/06/17 Losartan Potassium [Cozaar] 25 mg PO DAILY #30 tab 04/06/17 Magnesium Hydroxide [Milk Of Magnesia] 30 ml PO DAILY PRN udc 04/06/17 Metoprolol Succinate [Toprol Xl] 50 mg PO DAILY #30 tablet.sa 04/06/17 Warfarin Sodium [Coumadin] 10 mg PO DAILY #30 tablet 04/06/17 oxyCODONE HCL [Oxycodone] 5 mg PO Q6H PRN tablet 04/06/17
[2017-04-06] MEDS ORDERED: METOPROLOL SUCCINATE 50 MG TABLET.SA PO SCH (09:00)
[2017-04-06] MEDS ORDERED: METOPROLOL SUCCINATE 25 MG TABLET.SA PO SCH (09:00)
[2017-04-06] MEDS: PANTOPRAZOLE SODIUM 20 MG TABLET.DR PO SCH (09:47)
[2017-04-06] MEDS: INSULIN DETEMIR 100 UNITS/ML VIAL SC SCH (09:47)
[2017-04-06] MEDS: amLODIPine BESYLATE 5 MG TABLET PO SCH (09:47)
[2017-04-06] MEDS: ENOXAPARIN SODIUM 80 MG, ENOXAPARIN SODIUM 30 MG SC SCH ×2 (09:48)
[2017-04-06] MEDS: POTASSIUM CHLORIDE 20 MEQ TABLET.SA PO SCH (09:54)
--- NOTE | 2017-04-06 10:27 | ECHO ---
This report is available in the EMR
--- NOTE | 2017-04-06 14:25 | PN ---
Subjective - Date and Time Seen Date: 04/03/17 Time: 11:15 Subjective Narrative: Patient seen and examined at bedside. No acute issues overnight. Patient denies any new issues or concerns this AM. Objective - Review of Systems Generalized/Overall Review: Reports: No Symptoms Reported EENTM: Reports: No Symptoms Reported Respiratory: Reports: No Symptoms Reported Cardiac: Reports: No Symptoms Reported Abdominal: Reports: No Symptoms Reported Genitourinary Symptoms: Reports: No Symptoms Reported Musculoskeletal Complaints: Reports: No Symptoms Reported Neurological: Reports: No Symptoms Reported Skin: Reports: No Symptoms Reported Endocrine: Reports: No Symptoms Reported Misc: All systems neg except as marked - Vitals Vitals: Last Vital Signs Temp 36.5 C 04/06/17 06:31 Pulse 76 04/06/17 09:48 Resp 14 04/06/17 06:31 BP 152/94 04/06/17 09:48 Pulse Ox 98 04/06/17 06:31 - Abnormal Lab Findings Abnormal Lab Findings: Abnormal Lab Results 04/06/17 Range/Units 05:20 PT 11.1 H (9.0-11.0) Seconds INR (Anticoag Therapy) 1.11 H (0.90-1.10) INR - Exam Constitutional: Present: Alert, Oriented x3, Cooperative, Well developed, No distress, Obese ENT Exam: Present: hearing grossly normal, moist mucous membranes Respiratory: Present: lungs clear, normal breath sounds, no respiratory distress , no accessory muscle use Cardiovascular/Chest: Present: no edema, irregularly irregular Abdomen: Present: soft, nontender, nondistended Extremity: Present: normal inspection, no pedal edema Skin Exam: Present: normal color, warm/dry, no cyanosis Neurologic: Present: alert, normal mood/affect, oriented x 3 Appearance: Present: appropriate appearance, appropriate insight, neat, no memory impairment Eye contact: Present: cooperative, good eye contact, normal speech Thoughts: Present: normal thought pattern, no apparent hallucination Assessment/Plan Plan Narrative: Discontinue cardizem gtt. Start metoprolol succinate 25mg PO daily. Transfer out of SCU. Discontinue heparin gtt and transition to therapeutic lovenox with 1mg/kg subQ Q12H for bridging plus coumadin with pharmacy to dose with goal INR 2-3. 2D echo cardiogram scheduled for Wednesday (04/05/2017) as we do not have anyone available this weekend to read echos. - Problems/Diagnosis (1) Atrial fibrillation with RVR Problem: Acute
[2017-04-06] MEDS ORDERED: MAGNESIUM HYDROXIDE 30 ML UDC PO PRN (20:00)
== END 2017-04-06 11:30 | disposition home or self-care (01) | DRG 308 ==
LOC: ER 16:25 → INTOOBSV 17:28 → SCU 17:28 → OBSVTOIN 04-03 10:40 → MS 04-03 13:13
PROVIDERS: ADMIT Internal Medicine; ATTEND Allergy & Immunology
PROC: B246ZZZ Ultrasonography of Right and Left Heart (ICD-10-PCS; principal; 2017-04-05)
DX: I48.91 Unspecified atrial fibrillation (principal); I50.43 Acute on chronic combined systolic (congestive) and diastolic (congestive) heart failure; I25.810 Atherosclerosis of coronary artery bypass graft(s) without angina pectoris; K59.01 Slow transit constipation; E11.9 Type 2 diabetes mellitus without complications; I10 Essential (primary) hypertension; E78.5 Hyperlipidemia, unspecified; I25.2 Old myocardial infarction; Z95.1 Presence of aortocoronary bypass graft; Z79.4 Long term (current) use of insulin
CPT/HCPCS: 36415; 71010; 80048; 80053; 84443; 84484; 85025; 85610; 85730; 93005; 93306; 96365; 96366; 96375; 99285; G0378

== ENCOUNTER 2017-05-03 12:54 | Emergency (ER) | payer MEDICARE, BC ==
[2017-05-03] MEDS ORDERED: METOPROLOL TARTRATE 1 MG/ML AMPUL IV ONE ×2 (13:13→13:23)
[2017-05-03] MEDS ORDERED: ASPIRIN 81 MG TAB.CHEW PO ONE (13:13)
--- NOTE | 2017-05-03 13:19 | ERNOTE ---
Medical Problem HPI - General Chief Complaint: General Assessment Time Seen by Provider: 05/03/17 13:05 Source: patient Exam Limitations: no limitations - Immun/Allergies/Home Medications Immunizations: IMMUNIZATION HX Immunizations Up to Date Yes History of Influenza Vaccine Yes Hx Pneumococcal Vaccination Yes Allergies/Adverse Reactions: Allergies metaxalone [From Skelaxin] Allergy (Severe, Verified 05/03/17 13:12) Other violently sick/nausea rosiglitazone maleate [From Avandia] Allergy (Severe, Verified 05/03/17 13:12) Other tachy rosuvastatin calcium [From Crestor] Allergy (Severe, Verified 05/03/17 13:12) Muscle Pain cramps clarithromycin [From Biaxin] Allergy (Intermediate, Verified 05/03/17 13:12) Nausea duloxetine HCl [From Cymbalta] Allergy (Intermediate, Verified 05/03/17 13:12) Other sweats and feel funny pregabalin [From Lyrica] Allergy (Intermediate, Verified 05/03/17 13:12) Other dizziness Home Medications: HOME MEDICATIONS Amlodipine Besylate [Norvasc] 2.5 mg PO DAILY 10/19/14 [Last Taken Unknown] Omeprazole [Prilosec] 20 mg PO BID 10/19/14 [Last Taken Unknown] Simvastatin [Zocor] 60 mg PO HS 10/19/14 [Last Taken Unknown] Acetaminophen [Tylenol] 650 mg PO QID PRN #1 tab 10/20/14 [Last Taken Unknown] Insulin Detemir [Levemir] 80 units SC BID 10/20/14 [Last Taken 10/20/14 01:00] Nitroglycerin [Nitrostat] 0.4 mg SL Q5MIN PRN #1 btl 10/20/14 [Last Taken Unknown] Cyclobenzaprine HCl [Flexeril] 10 mg PO QID PRN 04/02/17 [Last Taken Unknown] oxyCODONE HCL/ACETAMINOPHEN [Endocet 10-325 mg Tablet] 1 each PO PRN PRN [Last Taken Unknown] Insulin Lispro [Humalog] See Protocol SC ACINS 30 Days #30 vial 04/06/17 [Last Taken Unknown] Magnesium Hydroxide [Milk Of Magnesia] 30 ml PO DAILY PRN udc 04/06/17 [Last Taken Unknown] Isosorbide Mononitrate [Imdur] 60 mg PO DAILY 05/03/17 [Last Taken Unknown] Losartan Potassium [Cozaar] 100 mg PO DAILY 05/03/17 [Last Taken Unknown] Metoprolol Succinate [Toprol Xl] 200 mg PO DAILY 05/03/17 [Last Taken Unknown] Metoprolol Tartrate [Lopressor] 25 mg PO BID #30 tab 05/03/17 [Last Taken Unknown] Potassium Chloride [Klor-Con] 20 meq PO BID 05/03/17 [Last Taken Unknown] Simvastatin 40 mg PO DAILY 05/03/17 [Last Taken Unknown] Warfarin Sodium [Coumadin] 9 mg PO DAILY 05/03/17 [Last Taken Unknown] - History of Present History Narrative: Patient states that his heart started racing this morning. He denies any chest pain or diaphoresis and neither does he have any neck or jaw pain. He does have chronic back pain ever since his thoracotomy from his bypass surgery. Timing: constant Severity: mild Review of Systems - Review of Systems Constitutional: Present: See HPI EYE: Present: no symptoms reported ENT: Present: no symptoms reported Respiratory: Present: no symptoms reported Cardiology: Present: palpitations Gastrointestinal/Abdominal: Present: no symptoms reported Genitourinary: Present: no symptoms reported Musculoskeletal: Present: no symptoms reported Skin: Present: no symptoms reported Neurological: Present: no symptoms reported Endocrine: Present: no symptoms reported Hematologic/Lymphatic: Present: no symptoms reported Psych: Present: no symptoms reported - Patient's Past Medical History Patient History - Medical: Diabetes Type 2 Insulin Dependent, GERD, Osteoarthritis Patient History - Cardiac/Respiratory: Hypertension, Hyperlipidemia, Myocardial Infarction Patient History - Cancer: No Hx of Cancer Patient History - Surgical Procedures: Coronary Bypass Surgery, Other Patient History - Other: None - Family History Mother Family History - Medical: Arthritis, Other Family History - Cardiac/Respiratory: Atrial Fibrillation, Hypertension, Hyperlipidemia Family History - Cancer: No pertinent family hx, Breast Father Family History - Medical: Arthritis, Diabetes Type 2, Other Family History - Cardiac/Respiratory: Hypertension, Hyperlipidemia, Myocardial Infarction Family History - Cancer: No pertinent family hx Grandfather-Paternal Family History - Medical: , Arthritis Family History - Cardiac/Respiratory: No pertinent hx Family History - Cancer: No pertinent family hx Grandmother-Maternal Family History - Medical: , Arthritis Family History - Cardiac/Respiratory: No pertinent hx Family History - Cancer: No pertinent family hx Grandmother-Paternal Family History - Medical: , Arthritis Family History - Cardiac/Respiratory: No pertinent hx Family History - Cancer: No pertinent family hx Sister Family History - Medical: No pertinent hx Family History - Cardiac/Respiratory: Hypertension Family History - Cancer: No pertinent family hx - Social History Living Situations: home Abuse History: No History of abuse Psych History: No pertinent hx Smoking Status: Former smoker Alcohol Use: rarely Drug Use: none - Immunizations Immunizations Up to Date: Yes Hx Pneumococcal Vaccination: Yes History of Influenza Vaccine: Yes Physical Exam - Physical Exam General Appearance: Present: wd/wn, alert, mild distress Head Exam: Present: normal inspection Eye Exam: Normal inspection: bilateral, PERRL: bilateral Ears, Nose, Throat: Present: normal ENT inspection, H, normal pharynx Neck: Present: normal inspection, nontender Respiratory: Present: no respiratory distress, normal breath sounds, no accessory muscle use, chest nontender, lungs clear Cardiovascular/Chest: Present: no murmur, normal peripheral pulses, tachycardia Gastrointestinal/Abdominal: Present: normal bowel sounds, nontender, nondistended, soft, no organomegaly Rectal Exam: Present: deferred Back Exam: Present: normal range of motion, other - chronic back pain from his thoracotomy in 2003 Extremity Exam: Present: normal inspection, non-tender, no edema, normal range of motion Neurological Exam: Present: alert, oriented, normal mood/affect Skin Exam: Present: normal color, warm/dry Lymphatic Exam: Present: no adenopathy ED Progress - Results and Orders Patient's Lab Results:: I have reviewed the patient's lab results. - Vital Signs Patient's Vital Signs:: I have reviewed the patient's vital signs. Vital Signs: Vital Signs 05/03/17 13:01 Temperature 37.0 C Pulse Rate 131 H Respiratory 11 L Rate Blood Pressure 165/91 O2 Sat by Pulse 98 Oximetry - EKG EKG: supraventricular tachycardia EKG read: Interp. by me - second EKG revealed a sinus tachycardia however more in the range of 110. - X-Ray X-Ray #1 X-Ray: chest Interpretation: Reviewed by me - Progress/Reassessment Chief Complaint: General Assessment Plan - Plan Plan: I discussed the case with Dr. Phillips and he recommended we put the patient on a short acting beta ana twice a day and he will see him in the office next week area Departure Clinical Impression: Palpitations, Tachycardia - Departure Disposition: Home self-care Condition: Good Instructions: Sinus Tachycardia Referrals: Rigo Barajas MD [Primary Care Provider] - Prescriptions: Metoprolol Tartrate [Lopressor] 25 mg PO BID #30 tab
[2017-05-03] MEDS ORDERED: ASPIRIN 81 MG TAB.CHEW ONE (13:23)
[2017-05-03 13:42] LABS: Hematocrit 40.7 % (42.0-52.0); Hemoglobin 14.2 gm/dL (13.5-18.0); Mean Cell Volume 81.9 fl (78-100); Mean Corpuscular Hemoglobin 28.6 pg (27-31); Mean Corpuscular Hgb Conc 34.9 g/dl (32-36); Mean Platelet Volume 10.5 fl (6.0-9.5); Neutrophil # 6.3 K/mm3 (1.3-6.0); Neutrophil % 68.4 % (42-75.0); Platelet Count 225 K/mm3 (150-450); Red Blood Count 4.97 M/mm3 (4.7-6.0); Red Cell Distribution Width 13.4 % (11.5-14.0); White Blood Count 9.3 K/mm3 (4.0-10.5)
[2017-05-03 13:57] LABS: INR 3.26 INR (0.90-1.10)
[2017-05-03 14:02] LABS: ALT 35 U/L (19-67); AST 28 U/L (0-48); Albumin * 3.8 gm/dl (3.4-5.0); Alkaline Phosphatase * 59 U/L (50-170); Anion Gap 19.6 mmol/L (6.8-13.8); Bilirubin, Total 0.4 mg/dL (0.0-1.1); Ca. Corrected For Albumin 8.9 mg/dL (8.4-10.2); Calcium * 9.1 mg/dL (7.9-10.9); Carbon Dioxide 24.9 mmol/L (24-32.6); Chloride 94 mmol/L (97-106); Glucose * 232 mg/dL (70-110); Magnesium 1.3 mg/dL (1.2-2.8); Potassium 3.5 mmol/L (3.4-4.6); Sodium 135 mmol/L (132-142); Total Protein 7.8 gm/dL (6.2-8.2)
[2017-05-03 14:14] LABS: BUN/Creatinine Ratio 20.6 (9.0-21.6); Blood Urea Nitrogen 22 mg/dL (6-23); Troponin I Less than 0.017 ng/ml (0.00-0.10)
[2017-05-03 15:32] VITALS: BP 139/79
== END 2017-05-03 15:32 | disposition home or self-care (01) ==
LOC: ER 12:54
DX: R00.2 Palpitations (principal); R00.0 Tachycardia, unspecified; E11.9 Type 2 diabetes mellitus without complications; Z79.01 Long term (current) use of anticoagulants; K21.9 Gastro-esophageal reflux disease without esophagitis; M19.90 Unspecified osteoarthritis, unspecified site; I10 Essential (primary) hypertension; E78.5 Hyperlipidemia, unspecified; I25.2 Old myocardial infarction

== ENCOUNTER 2017-07-04 12:53 | Emergency (ER) | payer MEDICARE, BC ==
--- NOTE | 2017-07-04 13:56 | ERNOTE ---
ENT HPI Date of Service: 07/04/17 Time Seen by Provider: 07/04/17 13:35 Source: patient - Immun/Allergies/Home Medications Immunizations: IMMUNIZATION HX Immunizations Up to Date No History of Influenza Vaccine No Hx Pneumococcal Vaccination No Allergies/Adverse Reactions: Allergies Allergy/AdvReac Type Severity Reaction Status Date / Time metaxalone [From Skelaxin] Allergy Severe Other Verified 05/03/17 13:12 rosiglitazone maleate Allergy Severe Other Verified 05/03/17 13:12 [From Avandia] rosuvastatin calcium Allergy Severe Muscle Pain Verified 05/03/17 13:12 [From Crestor] clarithromycin [From Biaxin] Allergy Intermediate Nausea Verified 05/03/17 13:12 duloxetine HCl Allergy Intermediate Other Verified 05/03/17 13:12 [From Cymbalta] pregabalin [From Lyrica] Allergy Intermediate Other Verified 05/03/17 13:12 Home Medications: HOME MEDICATIONS Amlodipine Besylate [Norvasc] 2.5 mg PO DAILY 10/19/14 [Last Taken Unknown] Omeprazole [Prilosec] 20 mg PO BID 10/19/14 [Last Taken Unknown] Simvastatin [Zocor] 60 mg PO HS 10/19/14 [Last Taken Unknown] Acetaminophen [Tylenol] 650 mg PO QID PRN #1 tab 10/20/14 [Last Taken Unknown] Insulin Detemir [Levemir] 80 units SC BID 10/20/14 [Last Taken 10/20/14 01:00] Nitroglycerin [Nitrostat] 0.4 mg SL Q5MIN PRN #1 btl 10/20/14 [Last Taken Unknown] Cyclobenzaprine HCl [Flexeril] 10 mg PO QID PRN 04/02/17 [Last Taken Unknown] oxyCODONE HCL/ACETAMINOPHEN [Endocet 10-325 mg Tablet] 1 each PO PRN PRN [Last Taken Unknown] Insulin Lispro [Humalog] See Protocol SC ACINS 30 Days #30 vial 04/06/17 [Last Taken Unknown] Magnesium Hydroxide [Milk Of Magnesia] 30 ml PO DAILY PRN udc 04/06/17 [Last Taken Unknown] Isosorbide Mononitrate [Imdur] 60 mg PO DAILY 05/03/17 [Last Taken Unknown] Losartan Potassium [Cozaar] 100 mg PO DAILY 05/03/17 [Last Taken Unknown] Metoprolol Succinate [Toprol Xl] 200 mg PO DAILY 05/03/17 [Last Taken Unknown] Metoprolol Tartrate [Lopressor] 25 mg PO BID #30 tab 05/03/17 [Last Taken Unknown] Potassium Chloride [Klor-Con] 20 meq PO BID 05/03/17 [Last Taken Unknown] Simvastatin 40 mg PO DAILY 05/03/17 [Last Taken Unknown] Warfarin Sodium [Coumadin] 9 mg PO DAILY 05/03/17 [Last Taken Unknown] Amoxicillin 875 mg PO BID 10 Days #20 tablet 07/04/17 [Last Taken Unknown] - History of Present Illness Narrative: 62-year-old male presents to the emergency room for cough 1 week sore throat and sinus pain. Date (Duration): 07/04/17 Severity: Present: mild ENT Location: Present: throat Prearrival Treatment: Present: no prearrival treatment Modifying Factors - Improves: Reports: nothing Modifying Factors - Worsens: Reports: nothing Associated Symptoms - ENT: Reports: cough, sore throat, nasal congestion/ drainage Review of Systems - Review of Systems Constitutional: Present: See HPI EYE: Present: no symptoms reported ENT: Present: See HPI, nose congestion, nasal drainage, sore throat Respiratory: Present: See HPI, cough Cardiology: Present: no symptoms reported Gastrointestinal/Abdominal: Present: no symptoms reported Genitourinary: Present: no symptoms reported Musculoskeletal: Present: no symptoms reported Skin: Present: no symptoms reported Neurological: Present: no symptoms reported Endocrine: Present: no symptoms reported Hematologic/Lymphatic: Present: no symptoms reported Psych: Present: no symptoms reported All Other Systems: All systems neg except as marked - Patient's Past Medical History Patient History - Medical: Diabetes Type 2 Insulin Dependent, GERD, Osteoarthritis Patient History - Cardiac/Respiratory: Atrial Fibrillation, Hypertension, Hyperlipidemia, Myocardial Infarction Patient History - Cancer: No Hx of Cancer Patient History - Surgical Procedures: Coronary Bypass Surgery, Other Patient History - Other: None - Family History Mother Family History - Medical: Arthritis, Other Family History - Cardiac/Respiratory: Atrial Fibrillation, Hypertension, Hyperlipidemia Family History - Cancer: No pertinent family hx, Breast Father Family History - Medical: Arthritis, Diabetes Type 2, Other Family History - Cardiac/Respiratory: Hypertension, Hyperlipidemia, Myocardial Infarction Family History - Cancer: No pertinent family hx Grandfather-Paternal Family History - Medical: , Arthritis Family History - Cardiac/Respiratory: No pertinent hx Family History - Cancer: No pertinent family hx Grandmother-Maternal Family History - Medical: , Arthritis Family History - Cardiac/Respiratory: No pertinent hx Family History - Cancer: No pertinent family hx Grandmother-Paternal Family History - Medical: , Arthritis Family History - Cardiac/Respiratory: No pertinent hx Family History - Cancer: No pertinent family hx Sister Family History - Medical: No pertinent hx Family History - Cardiac/Respiratory: Hypertension Family History - Cancer: No pertinent family hx - Social History Living Situations: home Abuse History: No History of abuse Psych History: No pertinent hx Smoking Status: Former smoker Have you smoked in the past 12 months: No Do you dip or chew tobacco: No Alcohol Use: sober Drug Use: none - Immunizations Immunizations Up to Date: No Hx Pneumococcal Vaccination: No History of Influenza Vaccine: No Physical Exam - Physical Exam General Appearance: Present: wd/wn, alert, no apparent distress Head Exam: Present: normal inspection, no evidence of injury Eye Exam: Normal inspection: bilateral, PERRL: bilateral Ears, Nose, Throat: Present: normal except -, pharyngeal erythema, tonsillar exudate, tonsillar swelling Neck: Present: supple, full range of motion, lymphadenopathy (R), lymphadenopathy (L) Respiratory: Present: no respiratory distress, normal breath sounds, no accessory muscle use, chest nontender, lungs clear Cardiovascular/Chest: Present: regular rate, rhythm, no murmur, normal peripheral pulses Gastrointestinal/Abdominal: Present: normal bowel sounds, nontender, nondistended, soft, no organomegaly Back Exam: Present: normal inspection, normal range of motion, no CVA tenderness , no vertebral tenderness Extremity Exam: Present: normal inspection, non-tender, normal range of motion, no edema Neurological Exam: Present: alert, oriented, normal mood/affect, no motor/ sensory deficits Skin Exam: Present: normal color, warm/dry Lymphatic Exam: Present: no adenopathy ED Progress - Results and Orders Patient's Lab Results:: I have reviewed the patient's lab results. Results and Orders: negative strep - Vital Signs Patient's Vital Signs:: I have reviewed the patient's vital signs. Vital Signs: Vital Signs 07/04/17 13:02 Temperature 36.0 C L Pulse Rate 90 Respiratory 16 Rate Blood Pressure 157/92 O2 Sat by Pulse 98 Oximetry - Progress/Reassessment Chief Complaint: Sore Throat Progress:: Pain free at discharge Plan - Plan Plan: patient will follow up with pcp if needed Departure Clinical Impression: Acute bacterial tonsillitis - Departure Disposition: Home Follow Up Needed Condition: Stable Instructions: Tonsillitis, [id number] Additional Instructions: Take medications as prescribed. Follow-up with primary care provider if needed. Return to the emergency room for nausea vomiting diarrhea rash shortness of breath or increase in her current symptoms. Referrals: Rigo Barajas MD [Primary Care Provider] - Prescriptions: Amoxicillin 875 mg PO BID 10 Days #20 tablet
[2017-07-04 14:01] VITALS: BP 144/78
== END 2017-07-04 14:00 | disposition home or self-care (01) ==
LOC: ER 12:53
DX: J03.80 Acute tonsillitis due to other specified organisms; B96.89 Other specified bacterial agents as the cause of diseases classified elsewhere